=== PATIENT | male | born 1960 | race Caucasian/White ===

== ENCOUNTER 2017-04-25 15:59 | Emergency (ER) | payer MEDICAID ==
[~2017-04-25] VITALS: Ht 177.8 cm; Wt 84.0 kg
[2017-04-25] MEDS ORDERED: BACITRACIN ZINC OINT UDPKT TOP ONE (16:30)
[2017-04-25] MEDS ORDERED: LIDOCAINE HCL 1% 20ML VIAL (Pyxis) INJ MC ONE (16:30)
[2017-04-25] MEDS ORDERED: KETOROLAC 60MG/2ML VIAL IM ONE (16:45)
[2017-04-25 16:50] VITALS: BP 127/85
== END 2017-04-25 17:20 | disposition home or self-care (01) ==
LOC: ER 17:05
DX: S61.215A Laceration without foreign body of left ring finger without damage to nail, initial encounter (principal); S60.812A Abrasion of left wrist, initial encounter; V29.88XA Motorcycle rider (driver) (passenger) injured in other specified transport accidents, initial encounter; Y93.55 Activity, bike riding; Y92.89 Other specified places as the place of occurrence of the external cause; Y99.8 Other external cause status
CPT/HCPCS: 12002; 96372; 99283; J1885; J3490; X7700; Z7610